=== PATIENT | female | born 1960 | race Caucasian/White ===

== ENCOUNTER → 2022-05-17 | Outpatient (CLI) | payer MEDICARE, OTHER ==
[2022-05-17 10:55] LABS: HEMOGLOBIN 16.5 gm/dl (12.3-15.3); RED BLOOD COUNT 5.97 M/UL (4.00-5.10); WHITE BLOOD COUNT 10.8 K/UL (4.5-11.0)
[2022-05-17 13:05] LABS: BUN/CREATININE RATIO 15 (0-10)
== END ==
LOC: CT 04-16 11:00
PROVIDERS: Internal Medicine Hematology & Oncology
DX: C91.10 Chronic lymphocytic leukemia of B-cell type not having achieved remission (principal); R59.0 Localized enlarged lymph nodes
CPT/HCPCS: 36415; 70491; 71260; 80053; 83615; 85025; Q9967

== ENCOUNTER 2022-07-02 00:05 | Emergency (ER) | payer MEDICARE, OTHER ==
[2022-07-02 01:43] LABS: HEMOGLOBIN 15.1 gm/dl (12.3-15.3); RED BLOOD COUNT 5.44 M/UL (4.00-5.10)
[2022-07-02 02:20] LABS: BUN/CREATININE RATIO 11 (0-10)
[2022-07-02] MEDS ORDERED: MELOXICAM7.5 MG PO (05:32)
[2022-07-02] MEDS ORDERED: OMNICEF 300 MG300 MG PO (05:32)
[2022-07-02] MEDS ORDERED: HYDROCODON-ACE1 EAC4 PO (06:15)
== END 2022-07-02 06:17 | disposition home or self-care (01) ==
LOC: ER1 00:05
PROVIDERS: Student in an Organized Health Care Education/Training Program
DX: N39.0 Urinary tract infection, site not specified (principal); E87.6 Hypokalemia; Z88.8 Allergy status to other drugs, medicaments and biological substances; Z20.822 Contact with and (suspected) exposure to COVID-19
CPT/HCPCS: 71045; 80053; 81001; 82550; 82553; 83690; 84484; 85025; 87086; 93005; 96372; 96374; 99284; J1885; J2270; Q9967; U0002